=== PATIENT | male | born 1965 | race African-American/Black ===

== ENCOUNTER 2016-04-14 09:02 | Emergency (ER) | payer OTHER ==
[2016-04-14 09:43] VITALS: BP 139/88
--- NOTE | 2016-04-14 10:02 | UC ---
Hand/Wrist HPI - HPI Summary HPI Summary: 50 yo male was at work and slipped and fell injurying his left hand Occurred about 6 AM He is right handed took advil - History Of Current Complaint Chief Complaint: UCUpperExtremity Stated Complaint: HAND INJURY Time Seen by Provider: 04/14/16 09:57 Hx Obtained From: Patient Onset/Duration: Sudden Onset Severity Initially: Moderate Severity Currently: Mild Pain Intensity: 4 Pain Scale Used: 0-10 Numeric Character Of Pain: Aching, Throbbing Aggravating Factor(s): Movement Alleviating: OTC Meds Associated Signs And Symptoms: Positive: Swelling Related History: Occupational Injury, Dominant Hand Right - Allergies/Home Medications Allergies/Adverse Reactions: Allergies Allergy/AdvReac Type Severity Reaction Status Date / Time SHRIMP/LOBSTER Allergy Hives Uncoded 01/16/14 15:33 Home Medications: Home Medications Multiple Vitamins W/ Minerals [Emergen-C Vitamin C] 1 bonita PO 04/14/16 [History] Uric Acid Medication 04/14/16 [History] PMH/Surg Hx/FS Hx/Imm Hx Previously Healthy: Yes Endocrine History Of: Denies: Diabetes, Thyroid Disease Cardiovascular History Of: Denies: Cardiac Disorders, Hypertension Respiratory History Of: Denies: COPD, Asthma GI/ History Of: Denies: Ulcer - Surgical History Surgical History: Yes Surgery Procedure, Year, and Place: LEFT SHOULDER DECOMPRESSION-[facility] - Family History Known Family History: Positive: Hypertension - Social History Alcohol Use: Weekly Alcohol Amount: 4 BEERS PER WEEK Substance Use Type: None Smoking Status (MU): Never Smoked Tobacco Review of Systems Constitutional: Negative Skin: Negative Eyes: Negative ENT: Negative Respiratory: Negative Cardiovascular: Negative Gastrointestinal: Negative Genitourinary: Negative Motor: Negative Neurovascular: Negative Musculoskeletal: Arthralgia, Myalgia Neurological: Negative Psychological: Negative All Other Systems Reviewed And Are Negative: Yes Physical Exam Triage Information Reviewed: Yes Appearance: Well-Appearing, No Pain Distress, Well-Nourished Vital Signs: Initial Vital Signs Temp 97.8 F 04/14/16 09:38 Pulse 68 04/14/16 09:38 Resp 18 04/14/16 09:38 BP 139/88 04/14/16 09:38 Pulse Ox 100 04/14/16 09:38 Vital Signs Reviewed: Yes Eyes: Positive: Conjunctiva Clear ENT: Positive: Hearing grossly normal. Negative: Nasal congestion, Nasal drainage, Trismus, Muffled/hoarse voice Neck: Positive: Supple Respiratory: Positive: Lungs clear, Normal breath sounds, No respiratory distress, No accessory muscle use Cardiovascular: Positive: No Murmur, Pulses Normal. Negative: Bradycardia Musculoskeletal: Positive: Other: - see image Neurological: Positive: Alert Psychological Exam: Normal Skin Exam: Normal Hand/Wrist Course/Dx - Differential Dx/Diagnosis Provider Diagnoses: left hand contusion/hematoma Discharge - Discharge Plan Condition: Stable Disposition: HOME Patient Education Materials: Hematoma (ED) Forms: *Work Release Referrals: Marty Mack MD [Primary Care Provider] - Additional Instructions: moriah elevate ice tylenol or advil for pain recheck for new or worsening symptoms I expect you to be normal or near normal in 4-5 days If not return for recheck Images Hands: 1 - tender/swollen. sl decreased ROM of thumb. n/v intact. good cap refill
--- NOTE | 2016-04-14 10:24 | RAD ---
Indication: Left hand swelling and pain. 2 views of left hand demonstrates no fracture. No other bone or joint abnormality is identified. IMPRESSION: No fracture of left hand is noted.
== END 2016-04-14 10:38 | disposition home or self-care (01) ==
LOC: UCEAST 09:02
DX: S60.222A Contusion of left hand, initial encounter (principal); W01.0XXA Fall on same level from slipping, tripping and stumbling without subsequent striking against object, initial encounter; Y93.9 Activity, unspecified; Y92.89 Other specified places as the place of occurrence of the external cause; Y99.0 Civilian activity done for income or pay
CPT/HCPCS: 99212; G0463

== ENCOUNTER 2019-03-18 11:21 | Day surgery (SDC) | payer SELFPAY ==
[~2019-03-18 11:21] MED LIST: Buffered Lidocaine 1% SYRIN* 1 ML/SYRINGE INTRADERM ONE; Famotidine IV* 10 MG/ML 2 ML (20 mg) IV ONE; Lactated Ringers 1000 ML Bag* 1,000 ML IV SCH
[2019-03-18] MEDS ORDERED: ceFAZolin 2 GM PREMIX in ORs 2 GM/50 ML BAG ONE (12:27)
[2019-03-18] MEDS ORDERED: Famotidine IV* 10 MG/ML 2 ML (20 mg) ONE (12:28)
[2019-03-18] MEDS ORDERED: Buffered Lidocaine 1% SYRIN* 1 ML/SYRINGE INTRADERM ONE (12:28)
[2019-03-18] MEDS ORDERED: Lidocaine 2% PF * 5 ML VIAL ONE (12:44)
[2019-03-18] MEDS ORDERED: Rocuronium* 10 MG/ML VIAL ONE (12:44)
[2019-03-18] MEDS ORDERED: Dexamethasone IV* 4 MG/ML 1 ML (4 MG) ONE (12:44)
[2019-03-18] MEDS ORDERED: Ondansetron INJ* 2 MG/ML VIAL ONE (12:44)
[2019-03-18] MEDS ORDERED: Propofol* 10 MG/ML 20 ML BTL ONE (12:44)
[2019-03-18] MEDS ORDERED: fentaNYL* 50 MCG/ML 2 ML VIAL (100 MCG VIAL) ONE ×2 (12:44→14:29)
[2019-03-18] MEDS ORDERED: Ketorolac INJ* 30 MG/ML 1 ML VIAL ONE (12:44)
[2019-03-18] MEDS ORDERED: Midazolam* 1 MG/ML 5 ML VIAL (5 MG) ONE (12:45)
[2019-03-18] MEDS ORDERED: ceFAZolin 1 GM ADVAN(*) 1 GM ADDV.VIAL IVPB ONE (13:05)
[2019-03-18] MEDS ORDERED: Sugammadex * 500 MG/5 ML VIAL IV PUSH ONE (13:31)
[2019-03-18] MEDS ORDERED: Bupivacaine 0.5%* 50 ML MDV VIAL ONE (13:45)
[2019-03-18] MEDS ORDERED: Ondansetron INJ* 2 MG/ML VIAL IV PRN (14:39)
[2019-03-18] MEDS ORDERED: fentaNYL* 50 MCG/ML 2 ML VIAL (100 MCG VIAL) IV PRN (14:39)
[2019-03-18] MEDS ORDERED: oxyCODONE/Acetamin 5/325 MG* TAB PO PRN (14:39)
[2019-03-18] MEDS ORDERED: Naloxone* 0.4 MG/ML 1 ML VIAL IV PRN (14:39)
[2019-03-18] MEDS ORDERED: hydrALAZINE IV* 20 MG/ML VIAL ONE (16:32)
[2019-03-18] MEDS ORDERED: Acetaminophen IV 1GM/100ML * 100 ML ONE (16:32)
[2019-03-18] MEDS ORDERED: Acetaminophen IV 1GM/100ML * 1,000 MG/100 ML VIAL IVPB ONE (16:33)
[2019-03-18] MEDS ORDERED: hydrALAZINE IV* 20 MG/ML VIAL IV SLOW PU ONE (16:35)
[2019-03-18 17:38] VITALS: BP 145/97
--- NOTE | 2019-03-18 20:57 | OP ---
DATE OF OPERATION: 03/18/19 - [facility] DATE OF : 69 SURGEON: Villa Mckeon MD PRE-OP DIAGNOSIS: Left inguinal hernia. POST-OP DIAGNOSIS: Left direct inguinal hernia. OPERATIVE PROCEDURE: Robotic repair of left direct inguinal hernia with mesh. INDICATIONS: Left inguinal hernia. Risks included, but not limited to, bleeding, infection, injury to intraabdominal contents including the bowel, pelvic nerves and vessels, spermatic cord, recurrence of the hernia among others explained to the patient, who seemed to understand, agreed to the procedure, and all questions were answered. DESCRIPTION OF PROCEDURE: The patient was taken to the operating room, placed supine. Preoperative antibiotics had been given. After the successful induction of general endotracheal anesthesia, the abdomen was prepped and draped in a sterile fashion. A left upper quadrant trocar was placed under direct visualization of the camera using a bladeless Optiview trocar. Pneumoperitoneum was achieved to 15 mmHg. A camera was placed in the abdomen and the abdomen was scanned. There was no obvious injury from trocar placement. Upper midline and right upper quadrant 8-mm camera were placed under direct visualization of the camera. The 5-mm trocar was replaced with an 8-mm trocar. The patient was placed in the slight Trendelenburg position, the left inguinal hernia was noted, no right-sided hernia was noted. The mesh and suture were passed into the abdomen. The peritoneum was taken down and the direct hernia sac with very large lipoma was removed from the direct space. An indirect lipoma was also removed. The cord structures were intact. A ProGrip left-sided mesh was then placed over the pelvic floor covering the direct, indirect and femoral spaces. The peritoneum was closed using a running 3-0 V- Loc suture. The abdomen was scanned. There were no obvious injuries noted. Pneumoperitoneum was released from the abdomen. The trocars were removed. The skin was closed at all sites with Monocryl and glue was applied to the skin. Both testicles were within the scrotum at the conclusion of the case. There was no swelling. He tolerated the procedure well. He was taken to the recovery room in stable condition. [id number]/[facility] #: [id number] [facility]
== END 2019-03-18 17:40 | disposition home or self-care (01) ==
LOC: OR 11:21
PROVIDERS: ATTEND Surgery
DX: K40.90 Unilateral inguinal hernia, without obstruction or gangrene, not specified as recurrent (principal); I10 Essential (primary) hypertension
CPT/HCPCS: 49650; S2900; C1781; J0360; J0690; J1100; J1885; J2250; J2405; J2704; J3010; J3490